=== PATIENT | male | born 1955 | race Caucasian/White ===

== ENCOUNTER 2020-08-04 06:39 | Emergency (ER) | payer BC ==
[2020-08-04] MEDS: Ondansetron 4 MG/2 ML SDV IVPUSH ONE ×2 (06:59→07:26)
--- NOTE | 2020-08-04 07:21 | EDM.PDOC ---
ED HPI GENERAL MEDICAL PROBLEM - General Chief Complaint: Gastrointestinal Problem Stated Complaint: DIZZY, VOMITTING Time Seen by Provider: 08/04/20 07:05 Source of Information: Reports: Patient, RN History Limitations: Reports: Other (limited old records) - History of Present Illness INITIAL COMMENTS - FREE TEXT/NARRATIVE: 64 yo male presents after an abrupt onset about 5 am today of vertigo with nausea and vomiting. Is on no regular meds. Denies a hx of HTN. Feels like he is on a [id number]. Here via EMS. Sx's worse with turning his head. Onset: Sudden Onset Date: 08/04/20 Onset Time: 05:00 Duration: Hour(s):, Constant Location: Reports: Head Quality: Reports: Other (no pain) Severity: Severe Improves with: Reports: Rest Worsens with: Reports: Movement (especially of the head) Context: Reports: Other (See HPI) Associated Symptoms: Reports: Nausea/Vomiting. 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) (none) - Related Data Allergies Allergy/AdvReac Type Severity Reaction Status Date / Time aspirin Allergy Rash Verified 08/04/20 06:49 bee venom protein (honey bee) Allergy Anaphylactic Verified 08/04/20 06:49 Shock ibuprofen Allergy Rash Verified 08/04/20 06:49 Penicillins Allergy Hives Verified 08/04/20 06:49 Home Meds: Home Meds NK [No Known Home Meds] 08/04/20 [History] Past Medical History HEENT History: Reports: Impaired Vision Respiratory History: Reports: COPD Gastrointestinal History: Reports: Other (See Below) Other Gastrointestinal History: diverticulitis - Past Surgical History GI Surgical History: Reports: Appendectomy, Cholecystectomy Social & Family History - Family History Family Medical History: No Pertinent Family History - Tobacco Use Tobacco Use Status *Q: Current Every Day Tobacco User Years of Tobacco use: 50 Packs/Tins Daily: 1 - Caffeine Use Caffeine Use: Reports: Coffee, Soda - Recreational Drug Use Recreational Drug Use: No ED ROS GENERAL - Review of Systems Review Of Systems: See Below Constitutional: Reports: No Symptoms HEENT: Reports: No Symptoms Respiratory: Reports: No Symptoms Cardiovascular: Reports: No Symptoms Endocrine: Reports: No Symptoms GI/Abdominal: Reports: Nausea, Vomiting. Denies: Diarrhea : Reports: No Symptoms Musculoskeletal: Reports: No Symptoms Skin: Reports: No Symptoms Neurological: Reports: Dizziness. Denies: Headache, Numbness, Syncope ED EXAM, GI/ABD - Physical Exam Exam: See Below Exam Limited By: No Limitations General Appearance: Alert, WD/WN, No Apparent Distress Eyes: Bilateral: Nystagmus Ears: Normal External Exam, Normal Canal, Hearing Grossly Normal, Normal TMs Nose: Normal Inspection, No Blood Throat/Mouth: Normal Inspection, Normal Lips, Normal Oropharynx, Normal Voice, No Airway Compromise Head: Atraumatic, Normocephalic Neck: Normal Inspection Respiratory/Chest: No Respiratory Distress, Lungs Clear, Normal Breath Sounds, No Accessory Muscle Use Cardiovascular: Regular Rate, Rhythm, No Edema GI/Abdominal Exam: Normal Bowel Sounds, Soft, Non-Tender, No Distention Back Exam: Normal Inspection. No: CVA Tenderness (R), CVA Tenderness (L) Extremities: Normal Inspection, Normal Range of Motion, Non-Tender, No Pedal Edema Neurological: Alert, Oriented, CN II-XII Intact, Normal Cognition, No Motor/Sensory Deficits Psychiatric: Normal Affect, Normal Mood Skin Exam: Warm, Dry, Intact, Normal Color, No Rash Course - Vital Signs Last Recorded V/S: Last Vital Signs Temp 35.9 C L 08/04/20 06:50 Pulse 64 08/04/20 08:06 Resp 10 L 08/04/20 08:06 BP 172/93 H 08/04/20 08:06 Pulse Ox 93 L 08/04/20 08:06 - Orders/Labs/Meds Meds: Medications Discontinued Medications Generic Name Dose Route Start Last Admin Trade Name Chanel PRN Reason Stop Dose Admin Diphenhydramine HCl 25 mg 08/04/20 07:15 08/04/20 07:28 Diphenhydramine 50 Mg/Ml Sdv IVPUSH 08/04/20 07:16 25 mg ONETIME ONE Administration Diphenhydramine HCl 25 mg 08/04/20 07:56 08/04/20 08:03 Diphenhydramine 50 Mg/Ml Sdv IVPUSH 08/04/20 07:57 25 mg ONETIME ONE Administration Ondansetron HCl 4 mg 08/04/20 06:47 08/04/20 06:59 Ondansetron 4 Mg/2 Ml Sdv IVPUSH 08/04/20 06:48 4 mg ONETIME ONE Administration Ondansetron HCl 4 mg 08/04/20 07:15 08/04/20 07:26 Ondansetron 4 Mg/2 Ml Sdv IVPUSH 08/04/20 07:16 4 mg ONETIME ONE Administration - Re-Assessments/Exams Free Text/Narrative Re-Assessment/Exam: 08/04/20 09:00H Feeling better now after diphenhydramine 50 mg IV and Zofran 8 mg IV. Departure - Departure Time of Disposition: 09:10 Disposition: Home, Self-Care 01 Condition: Fair Clinical Impression: HTN, goal below 130/80 BPV (benign positional vertigo) Qualifiers: Laterality: unspecified laterality Qualified Code(s): H81.10 - Benign paroxysmal vertigo, unspecified ear - Discharge Information *PRESCRIPTION DRUG MONITORING PROGRAM REVIEWED*: Not Applicable *COPY OF PRESCRIPTION DRUG MONITORING REPORT IN PATIENT BRUCE: Not Applicable Instructions: Vertigo, [id number], Hypertension, Adult Referrals: PCP,None [Primary Care Provider] - Forms: ED Department Discharge Additional Instructions: Use Zofran as directed for nausea and meclizine as directed for vertigo symptoms. Return as directed to PT later today for coaching on Bridgette's maneuvers. Return as needed. No driving today. Sepsis Event Note (ED) - Evaluation Sepsis Screening Result: No Definite Risk - Focused Exam Vital Signs: Vital Signs Temp Pulse Resp BP Pulse Ox 08/04/20 08:06 64 10 L 172/93 H 93 L 08/04/20 07:29 74 11 L 173/83 H 94 L 08/04/20 06:50 35.9 C L 81 22 H 201/91 H 95
[2020-08-04] MEDS: diphenhydrAMINE 50 MG/ML SDV IVPUSH ONE ×2 (07:28→08:03)
== END 2020-08-04 09:24 | disposition home or self-care (01) ==
LOC: JP.ED 06:39
DX: H81.10 Benign paroxysmal vertigo, unspecified ear (principal); I10 Essential (primary) hypertension; Z88.0 Allergy status to penicillin; Z91.030 Bee allergy status; Z88.8 Allergy status to other drugs, medicaments and biological substances; Z72.0 Tobacco use
CPT/HCPCS: 96374; 96375; 96376; 99283; J1200; J2405